=== PATIENT | male | born 1995 | race Caucasian/White ===

== ENCOUNTER 2021-12-22 06:40 | Emergency (ER) | payer OTHER ==
[2021-12-22 06:50] VITALS: BP 120/73
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
[2021-12-22] MEDS: IBUPROFEN 800 MG TABLET PO STA (08:19)
[2021-12-22] MEDS: ACETAMINOPHEN 325 MG TABLET PO STA (08:19)
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
== END 2021-12-22 10:22 | disposition home or self-care (01) ==
LOC: ED 06:40
DX: S09.90XA Unspecified injury of head, initial encounter (principal); S90.31XA Contusion of right foot, initial encounter; V53.5XXA Driver of pick-up truck or van injured in collision with car, pick-up truck or van in traffic accident, initial encounter; Y93.89 Activity, other specified
CPT/HCPCS: 70450; 73630; 99282; 99284; A9270